=== PATIENT | female | born 2000 | race African-American/Black ===

== ENCOUNTER 2018-12-24 17:03 | Emergency (ER) | payer OTHER ==
[~2018-12-24] VITALS: Ht 170.2 cm; Wt 55.8 kg
[2018-12-24 18:22] LABS: ABSOLUTE NEUTROPHILS 1.9 thou/uL (1.4-8.2); BASOPHILS 0.9 % (0.0-2.0); EOSINOPHILS 8.8 % (0.0-3.0); HEMOGLOBIN 13.3 gm/dL (12.0-15.0); LYMPHOCYTES 44.2 % (24.0-44.0); MCHC 32.3 g/dL (28.0-37.0); MCV 89.8 fL (80.0-100.0); MONOCYTES 11.2 % (1.0-8.0); PLATELET COUNT 278 thou/uL (150-400); POLYS 34.9 % (36.0-66.0); RBC 4.57 mil/uL (4.20-5.00); RDW 17.1 % (10.5-14.5); WBC 5.5 thou/uL (4.0-11.0)
[2018-12-24 18:30] LABS: CALCIUM 9.4 mg/dL (8.5-10.1); CREATININE 0.9 mg/dL (0.6-1.0); POTASSIUM 3.5 mmol/L (3.5-5.1)
[2018-12-24 18:36] LABS: ALBUMIN 3.7 g/dL (3.4-5.0); TOTAL BILIRUBIN 0.3 mg/dL (<0.1-1.0); TOTAL PROTEIN 8.4 g/dL (6.4-8.2)
[2018-12-24] MEDS ORDERED: HYDROXYZINE HCL25 M2 PO (19:17)
[2018-12-24] MEDS ORDERED: FLAGYL500 M1 PO (19:52)
[2018-12-24 20:06] VITALS: BP 128/68
== END 2018-12-24 20:07 | disposition home or self-care (01) ==
LOC: ER 17:03 → EDBD 17:03 → ER 20:07
PROVIDERS: Physician Assistant
DX: N76.0 Acute vaginitis (principal); A63.0 Anogenital (venereal) warts; L29.9 Pruritus, unspecified; J45.909 Unspecified asthma, uncomplicated; F31.9 Bipolar disorder, unspecified; F20.9 Schizophrenia, unspecified; F17.210 Nicotine dependence, cigarettes, uncomplicated; Z91.010 Allergy to peanuts